=== PATIENT | male | born 1995 | race American Indian/Alaskan Native ===

== ENCOUNTER 2017-07-23 02:59 | Emergency (ER) | payer SELFPAY ==
[2017-07-23 03:29] LABS: Bilirubin,Urine NEG (Negative); Blood,Urine NEG (Negative); Ketones,Urine NEG (Negative); Leukocyte Esterase,Urine NEG (Negative); Nitrite,Urine NEG (Negative); Protein,Urine <15 mg/dL mg/dL (Negative); RBC,Urine < 1.0 /HPF (0.0-6.0); Urobilinogen,Urine < 2.0 mg/dL (<2.0); WBC,Urine < 1.0 /HPF (0.0-6.0)
[2017-07-23 04:23] LABS: Alanine Aminotransferase 29 units/L (7-56); Albumin 4.6 g/dL (3.9-5); Albumin/Globulin Ratio 1.4 %; Alkaline Phosphatase 82 units/L (35-129); Anion Gap 17 mmol/L; BUN/Creatinine Ratio 15.55; Blood Urea Nitrogen 14 mg/dL (9-20); Calcium 9.9 mg/dL (8.4-10.2); Carbon Dioxide 27 mmol/L (22-30); Chloride 96.8 mmol/L (98-107); Glucose 110 mg/dL (75-100); Lipase 16 units/L (13-60); Potassium 4.6 mmol/L (3.6-5.0); Sodium 136 mmol/L (137-145); Total Protein 7.8 g/dL (6.3-8.2)
[2017-07-23 04:25] LABS: Basophils % (Auto) 0.3 % (0.0-1.8); Eosinophils % (Auto) 5.6 % (0.0-4.3); Hematocrit 47.5 % (35.5-45.6); Hemoglobin 15.8 gm/dl (11.8-15.2); Mean Corpuscular HGB Conc 33 % (32-34); Mean Corpuscular Hemoglobin 28 pg (28-32); Mean Corpuscular Volume 85 fl (84-94); Platelet Count 232 K/mm3 (140-440); Red Blood Count 5.58 M/mm3 (3.65-5.03); White Blood Count 9.7 K/mm3 (4.5-11.0)
[2017-07-23 08:28] VITALS: BP 110/83
--- NOTE | 2017-07-23 09:34 | Emergency Department Report ---
ED Abdominal Pain HPI - General Chief Complaint: Abdominal Pain Stated Complaint: ABDOMINAL PAIN Time Seen by Provider: 07/23/17 08:38 Source: patient, family Mode of arrival: Ambulatory Limitations: No Limitations - History of Present Illness Initial Comments: 22-year-old male with 5 days worth of epigastric abdominal pain. Patient states she's had worsening pain over the course last 5 days. Came to the emergency department because the pain got slightly worse today. No blood in stool or hematemesis. He hasn't had any vomiting. States the pain improves with eating and then gets slightly worse about 45 minutes after eating. Denies fevers has had some chills. No other medical problems. He has had an episode like this in the past that improve with antacids. MD Complaint: abdominal pain -: Gradual Location: epigastric Radiation: none Migration to: no migration Severity: mild Severity scale (0 -10): 3 Consistency: constant Improves With: eating Worsens With: nothing Associated Symptoms: denies other symptoms, chills. denies: nausea, vomiting, diarrhea, fever, constipation, dysuria - Related Data Previous Rx's Medication Instructions Recorded Last Taken Type Omeprazole Magnesium [PriLOSEC Otc] 20 mg PO BID #60 tab 07/23/17 Unknown Rx Ranitidine HCl [Zantac 150 MG TAB] 150 mg PO BID #30 tablet 07/23/17 Unknown Rx Allergies Allergy/AdvReac Type Severity Reaction Status Date / Time No Known Allergies Allergy Unverified 11/13/14 15:27 ED Review of Systems ROS: Stated complaint: ABDOMINAL PAIN Other details as noted in HPI Comment: All other systems reviewed and negative Constitutional: denies: chills, fever Eyes: denies: eye pain, eye discharge, vision change ENT: denies: ear pain, throat pain Respiratory: denies: cough, shortness of breath, wheezing Cardiovascular: denies: chest pain, palpitations Endocrine: no symptoms reported Gastrointestinal: abdominal pain. denies: nausea, vomiting, diarrhea Genitourinary: denies: urgency, dysuria Musculoskeletal: denies: back pain, joint swelling, arthralgia Skin: denies: rash, lesions Neurological: denies: headache, weakness, paresthesias Psychiatric: denies: anxiety, depression Hematological/Lymphatic: denies: easy bleeding, easy bruising ED Past Medical Hx - Past Medical History Previous Medical History?: Yes Hx Asthma: Yes - Surgical History Past Surgical History?: No - Family History Family history: no significant - Social History Smoking Status: Never Smoker Substance Use Type: Alcohol, Marijuana - Medications Home Medications: Home Medications Medication Instructions Recorded Confirmed Last Taken Type Omeprazole Magnesium [PriLOSEC Otc] 20 mg PO BID #60 tab 07/23/17 Unknown Rx Ranitidine HCl [Zantac 150 MG TAB] 150 mg PO BID #30 tablet 07/23/17 Unknown Rx ED Physical Exam - General Limitations: No Limitations General appearance: alert, in no apparent distress - Head Head exam: Present: atraumatic, normocephalic - Eye Eye exam: Present: normal appearance. Absent: scleral icterus, conjunctival injection - ENT ENT exam: Present: mucous membranes moist - Neck Neck exam: Present: normal inspection - Respiratory Respiratory exam: Present: normal lung sounds bilaterally. Absent: respiratory distress, wheezes - Cardiovascular Cardiovascular Exam: Present: regular rate, normal rhythm. Absent: systolic murmur, diastolic murmur, rubs, gallop - GI/Abdominal GI/Abdominal exam: Present: soft, tenderness (epigastric), normal bowel sounds. Absent: distended - Rectal Rectal exam: Present: deferred - Extremities Exam Extremities exam: Present: normal inspection - Back Exam Back exam: Present: normal inspection - Neurological Exam Neurological exam: Present: alert, oriented X3 - Psychiatric Psychiatric exam: Present: normal affect, normal mood - Skin Skin exam: Present: warm, dry, intact, normal color. Absent: rash ED Course Vital Signs 07/23/17 07/23/17 07/23/17 03:00 08:24 08:25 Temperature 98.5 F Pulse Rate 87 66 80 Respiratory 20 12 11 L Rate Blood Pressure 110/83 Blood Pressure 121/83 [Right] O2 Sat by Pulse 100 Oximetry ED Medical Decision Making - Lab Data Result diagrams: 07/23/17 03:31 07/23/17 03:31 Laboratory Results - last 24 hr 07/23/17 07/23/17 07/23/17 03:31 03:31 Unknown WBC 9.7 RBC 5.58 H Hgb 15.8 H Hct 47.5 H MCV 85 MCH 28 MCHC 33 RDW 13.0 L Plt Count 232 Lymph % (Auto) 24.9 [place] % (Auto) 6.5 Eos % (Auto) 5.6 H Baso % (Auto) 0.3 Lymph # 2.4 [place] # 0.6 Eos # 0.5 H Baso # 0.0 Seg Neutrophils % 62.7 Seg Neutrophils # 6.1 Sodium 136 L Potassium 4.6 Chloride 96.8 L Carbon Dioxide 27 Anion Gap 17 BUN 14 Creatinine 0.9 Estimated GFR > 60 BUN/Creatinine Ratio 15.55 Glucose 110 H Calcium 9.9 Total Bilirubin 0.40 AST 22 ALT 29 Alkaline Phosphatase 82 Total Protein 7.8 Albumin 4.6 Albumin/Globulin Ratio 1.4 Lipase 16 Urine Color Straw Urine Turbidity Clear Urine pH 6.0 Ur Specific [place] 1.012 Urine Protein <15 mg/dl Urine Glucose (UA) Neg Urine Ketones Neg Urine Blood Neg Urine Nitrite Neg Urine Bilirubin Neg Urine Urobilinogen < 2.0 Ur Leukocyte Esterase Neg Urine WBC (Auto) < 1.0 Urine RBC (Auto) < 1.0 U Epithel Cells (Auto) < 1.0 - Medical Decision Making Patient is a 22-year-old male here with complaint of epigastric pain. Clinically history consistent with ulcer. Labs unremarkable lipase negative. Plan to treat with PPI and H2 uche. We'll have the patient follow-up as an outpatient. Portions of this chart were dictated with dictation software. There may be dictation errors contained within this note. Critical care attestation.: If time is entered above; I have spent that time in minutes in the direct care of this critically ill patient, excluding procedure time. ED Disposition Clinical Impression: GERD (gastroesophageal reflux disease) Disposition: DC-01 TO HOME OR SELFCARE Is pt being admited?: No Condition: Stable Instructions: Diet for Ulcers and Gastritis (ED), Gastroesophageal Reflux Disease (ED) Prescriptions: Omeprazole Magnesium [PriLOSEC Otc] 20 mg PO BID #60 tab Ranitidine HCl [Zantac 150 MG TAB] 150 mg PO BID #30 tablet Referrals: PRIMARY CARE, [Primary Care Provider] - 3-5 Days
[2017-07-23] MEDS ORDERED: PEPCID PO ONE (09:42)
[2017-07-23] MEDS ORDERED: PROTONIX PO SCH (10:00)
== END 2017-07-23 10:00 | disposition home or self-care (01) ==
LOC: ED 02:59
DX: K21.9 Gastro-esophageal reflux disease without esophagitis (principal); J45.909 Unspecified asthma, uncomplicated; F12.10 Cannabis abuse, uncomplicated
CPT/HCPCS: 36415; 80053; 81001; 83690; 85025; 99283